=== PATIENT | female | born 1990 | race Hispanic/Latino ===

== ENCOUNTER 2019-03-12 08:28 | Outpatient (CLI) | payer OTHER ==
--- NOTE | 2019-03-12 09:22 | ULT ---
ULTRASOUND ABDOMEN COMPLETE: DATE: 03/12/2019 HISTORY: Generalized abdominal pain in 29-year-old female FINDINGS: Gallbladder: Normal wall thickness. No gallstones or sludge identified. No pericholecystic fluid. Liver: Normal parenchymal echogenicity. Bilateral kidneys: No hydronephrosis. Pancreas: Nonspecific sonographic appearance. Common duct caliber: 4 mm. Abdominal aorta: No aneurysm Inferior vena cava: Unremarkable where visualized. Spleen: No splenomegaly IMPRESSION: Normal.
== END 2019-03-12 08:29 | disposition home or self-care (01) ==
LOC: ULT 08:28
PROVIDERS: ATTEND Internal Medicine Gastroenterology
DX: R10.9 Unspecified abdominal pain (principal)
CPT/HCPCS: 76700

== ENCOUNTER 2019-03-20 06:53 | Day surgery (SDC) | payer OTHER ==
[2019-03-19 08:46] VITALS: BMI 33.7
--- NOTE | 2019-03-20 07:57 | HP ---
HISTORY OF PRESENT ILLNESS: This is a 29-year-old female who comes to the ED for abdominal pain, chronic dyspepsia, and nausea. The patient was sent for abdominal sonogram recently. The sonogram showed no gallstones. The patient also has history of known dysphagia. She underwent EGD because of the chronic abdominal pain, nausea, and dyspepsia. ALLERGIES: NONE. SOCIAL HISTORY: The patient does not smoke or drink alcohol. PAST MEDICAL ILLNESSES: 1. Obesity. 2. Chronic acid reflux. PHYSICAL EXAMINATION: GENERAL: The patient is obese. Weight is 214 pounds. VITAL SIGNS: Pulse is 72, blood pressure 120/76. HEENT: Conjunctivae clear. CARDIOVASCULAR: First and second heart sounds heard. LUNGS: Clear to auscultation. ABDOMEN: Soft. No organomegaly. Abdomen is tender over the epigastric area. No rebound or guarding. ADMITTING DIAGNOSIS: Abdominal pain and dyspepsia. PLAN: EGD. Job ID: [id number]
--- NOTE | 2019-03-20 14:11 | OP ---
DATE OF PROCEDURE: 03/20/2019 PROCEDURE PERFORMED: Esophagogastroduodenoscopy with biopsy. PREOPERATIVE DIAGNOSES: Abdominal pain and dyspepsia. Negative abdominal sonogram. POSTOPERATIVE DIAGNOSES: 1. Normal esophagus. No esophagitis seen. 2. Two large gastric polyps, biopsied. 3. Normal duodenum. 4. Biopsy of the descending duodenum because of multiple whitish spots in the mucosa. DESCRIPTION OF PROCEDURE: The patient was placed on her left lateral position and was given sedation by Anesthesia Department. A [employer] video gastroscope under direct vision was passed down the oropharynx, past the GE junction into the stomach and subsequently into the descending duodenum. The esophageal mucosa appeared normal. The GE junction, no pathology seen. The fundus and cardia, no pathology seen. Over the gastric body, the patient was found to have two polyps. Both the polyps were biopsied. There were a couple of small polyps, which were not biopsied. The gastric antrum, no pathology seen. The incisura angularis, no pathology seen. The duodenal bulb and descending duodenum, no pathology seen. The descending duodenum mucosa showed little punctate white spots. Biopsy was obtained from this area. The stomach was decompressed and the scope removed. DISCHARGE PLANNING: This is a 29-year-old female with abdominal pain and nausea, came for EGD. She has had a negative sonogram earlier this week. The EGD showed gastric polyps and no other pathology to explain the abdominal pain. DISCHARGE RECOMMENDATIONS: The patient was advised to call me if she develops abdominal pain, hematemesis, or melena. In the absence of any of the symptoms, the patient will come back to me in 2 weeks. Job ID: [id number]
[2019-03-20] MEDS ORDERED: Lidocaine 1% PF 5 ML VIAL ONE (16:12)
[2019-03-20] MEDS ORDERED: PROPOFOL 200 MG/20 ML VIAL ONE (16:12)
== END 2019-03-20 10:42 | disposition home or self-care (01) ==
LOC: SDC 06:53
PROVIDERS: ATTEND Internal Medicine Gastroenterology
PROC: 0DB98ZX Excision of Duodenum, Via Natural or Artificial Opening Endoscopic, Diagnostic (ICD-10-PCS; principal; 2019-03-20)
PROC: 0DB68ZX Excision of Stomach, Via Natural or Artificial Opening Endoscopic, Diagnostic (ICD-10-PCS; principal; 2019-03-20)
DX: K31.7 Polyp of stomach and duodenum (principal); K29.80 Duodenitis without bleeding; K21.9 Gastro-esophageal reflux disease without esophagitis; E66.9 Obesity, unspecified; Z68.33 Body mass index [BMI] 33.0-33.9, adult; Z88.8 Allergy status to other drugs, medicaments and biological substances; Z79.899 Other long term (current) drug therapy
CPT/HCPCS: 88305; 88312

== ENCOUNTER 2022-09-05 16:32 | Emergency (ER) | payer OTHER ==
[2022-09-05 18:30] LABS: BHCG - Serum Negative (NEGATIVE); Pregs Control Background? CLEAR/WHITE (CLR/WHITE); Pregs Control Bar Appear? YES (CONTROL BAR)
[2022-09-05 18:35] LABS: #Lymphocytes 1.9 thou/uL (1.20-3.40); #Monocytes 0.5 thou/uL (0.11-0.59); #Neutrophils 9.1 thou/uL (1.40-6.50); %Eosinophils 0.3 % (0.0-10.0); %Lymphocytes 16.2 % (21.0-51.0); %Monocytes 4.6 % (0.0-10.0); %Neutrophils 78.9 % (42.0-75.0); Hemoglobin 15.3 g/dL (12.0-16.0); Mean Corpuscular HGB CONC 33.6 g/dL (32.0-36.0); Mean Corpuscular Hemoglobin 30.3 pg (27.0-31.0); Mean Corpuscular Volume 90.3 fl (78.0-98.0); Mean Platelet Volume 9.2 fL (7.4-10.4); Platelet Count 265 10x3/uL (130-400); RBC Distribution Width 11.6 % (11.5-14.5); Red Blood Cell (RBC) Count 5.03 mill/uL (4.20-5.40); White Blood Cell (WBC) Count 11.5 10x3/uL (4.8-10.8)
[2022-09-05 18:59] LABS: ALT (SGPT) 18 U/L (8-55); AST (SGOT) 14 U/L (5-34); Albumin 4.5 g/dL (3.5-5.0); Alkaline Phosphatase 75 U/L (40-110); Anion Gap 14 mmol/L (10-20); BUN (Urea Nitrogen) 8 mg/dL (7.0-18.7); Bilirubin, Total 0.9 mg/dL (0.2-1.2); Calc. Creatinine Clearance 0 mL/min (70-130); Calcium 9.6 mg/dL (7.8-10.44); Carbon Dioxide 21 mmol/L (22-29); Chloride 105 mmol/L (98-107); Estimated GFR 117; Glucose 103 mg/dL (70-105); Lipase 5 U/L (8-78); Potassium 4.1 mmol/L (3.5-5.1); Protein, Total 7.5 g/dL (6.0-8.3); Sodium 136 mmol/L (136-145)
[2022-09-05] MEDS ORDERED: Diazepam 10 MG/2 ML SYRINGE ONE ×2 (19:19→20:30)
[2022-09-05] MEDS ORDERED: Benzocaine 20% Spray 60 ML CAN ONE (19:19)
[2022-09-05] MEDS ORDERED: Methylnaltrexone 12 MG/0.6 ML VIAL SC SCH (19:45)
[2022-09-05 20:05] LABS: Bacteria/HPF 3+ HPF (None Seen); Bilirubin Negative (Negative); Blood, Urine 1+ (Negative); Clarity Turbid (Clear); Glucose, Urine (Dipstick) Normal (Negative); Ketone, Urine 40 mg/dL (Negative); Leukocyte 250 Leu/uL (Negative); Nitrite Negative (Negative); Protein, Urine (Dipstick) Negative (Neg-Trace); RBC/HPF 0-3 HPF (0-3); Specific Gravity, Urine 1.009 (1.002-1.036); Urobilinogen Normal mg/dL (Less than 2); pH, Urine 6.5 (5.0-9.0)
[2022-09-05] MEDS ORDERED: Mineral Oil ENEMA PR SCH (21:30)
== END 2022-09-05 22:38 | disposition home or self-care (01) ==
LOC: ERS 16:32
DX: K59.00 Constipation, unspecified (principal)
CPT/HCPCS: 36415; 74019; 80053; 81003; 81015; 83690; 84703; 85025; 96372; 96374; 96376; J2212; J3360